=== PATIENT | male | born 1985 ===

== ENCOUNTER 2018-08-03 09:26 | Emergency (ER) | payer OTHER ==
[~2018-08-03] VITALS: Ht 172.7 cm; Wt 82.6 kg
[2018-08-03] MEDS ORDERED: FLONASE ALLERG9.9 ML NASAL (10:43)
== END 2018-08-03 10:51 | disposition home or self-care (01) ==
LOC: ER 09:26
DX: H10.89 Other conjunctivitis (principal)

== ENCOUNTER 2019-01-26 17:31 | Emergency (ER) | payer OTHER ==
[~2019-01-26] VITALS: Ht 177.8 cm; Wt 84.4 kg
[~2019-01-26 17:31] MED LIST: FLONASE ALLERG9.9 ML NASAL
== END 2019-01-26 21:18 | disposition home or self-care (01) ==
LOC: ER 17:31
DX: M51.27 Other intervertebral disc displacement, lumbosacral region (principal)

== ENCOUNTER 2019-01-31 10:55 | Emergency (ER) | payer OTHER ==
[~2019-01-31] VITALS: Ht 177.8 cm; Wt 86.2 kg
[2019-01-31] MEDS ORDERED: TRAM1TAB98 (11:04)
[2019-01-31] MEDS ORDERED: valium PO (12:44)
== END 2019-01-31 13:08 | disposition home or self-care (01) ==
LOC: ER 10:55
DX: M54.5 Low back pain (principal)

== ENCOUNTER 2019-10-03 16:41 | Emergency (ER) | payer OTHER ==
[~2019-10-03] VITALS: Ht 172.7 cm; Wt 74.8 kg
[~2019-10-03 16:41] MED LIST changes: +TRAM1TAB98; +valium PO
== END 2019-10-03 20:30 | disposition home or self-care (01) ==
LOC: ER 16:41
DX: B34.9 Viral infection, unspecified (principal)